=== PATIENT | female | born 1955 | race Caucasian/White ===

== ENCOUNTER → 2020-12-15 | Day surgery (SDC) | payer MEDICARE, OTHER ==
[~2020-12-15] MED LIST: BENADRYL25 MG PO; CITRACAL PO; COZAAR50 MG PO; HYDROCODON-ACE1 EAC2 PO; JARDIANCE10 MG PO; JARDIANCE25 MG PO; METFORMIN HCL500 MG PO; MILK OF MAGNESIA PO; MOBIC15 MG PO; VITAMIN B-122500 MCG PO
[2020-12-15 09:26] LABS: HEMOGLOBIN 15.3 gm/dl (12.3-15.3); RED BLOOD COUNT 4.89 M/UL (4.00-5.10)
[2020-12-15 09:49] LABS: BUN/CREATININE RATIO 40 (0-10)
== END | disposition home or self-care (01) ==
LOC: OR 08:23
PROVIDERS: Orthopaedic Surgery
DX: S52.572A Other intraarticular fracture of lower end of left radius, initial encounter for closed fracture (principal); E11.9 Type 2 diabetes mellitus without complications; I10 Essential (primary) hypertension; M08.90 Juvenile arthritis, unspecified, unspecified site; G47.30 Sleep apnea, unspecified; W00.0XXA Fall on same level due to ice and snow, initial encounter; Z88.2 Allergy status to sulfonamides; Z83.3 Family history of diabetes mellitus; Z82.49 Family history of ischemic heart disease and other diseases of the circulatory system; Z79.899 Other long term (current) drug therapy; Z20.822 Contact with and (suspected) exposure to COVID-19
CPT/HCPCS: 36415; 73110; 76000; 80048; 82962; 85027; 87635; 93005; C1713; J0690; J1100; J1170; J2001; J2250; J2405; J2704; J2765; J2795; J3010; J7030; J7120

== ENCOUNTER → 2021-04-17 | Day surgery (SDC) | payer MEDICARE, OTHER ==
[~2021-04-17] VITALS: Ht 149.9 cm; Wt 78.9 kg
[2021-04-17 06:48] LABS: HEMOGLOBIN 14.6 gm/dl (12.3-15.3); RED BLOOD COUNT 4.98 M/UL (4.00-5.10); WHITE BLOOD COUNT 5.8 K/UL (4.5-11.0)
[2021-04-17 07:02] LABS: BUN/CREATININE RATIO 38 (0-10)
== END | disposition home or self-care (01) ==
LOC: OR 05:48
PROVIDERS: Orthopaedic Surgery
DX: G56.02 Carpal tunnel syndrome, left upper limb (principal); E11.9 Type 2 diabetes mellitus without complications; L40.9 Psoriasis, unspecified; M19.90 Unspecified osteoarthritis, unspecified site; I10 Essential (primary) hypertension; G47.30 Sleep apnea, unspecified; Z99.89 Dependence on other enabling machines and devices; Z88.2 Allergy status to sulfonamides; Z79.84 Long term (current) use of oral hypoglycemic drugs; Z79.899 Other long term (current) drug therapy
CPT/HCPCS: 36415; 80048; 82962; 85027; 93005; J0690; J1100; J2001; J2405; J2704; J3010; J7030; J7120